=== PATIENT | female | born 1965 | race Two or more races ===

== ENCOUNTER 2023-09-06 11:59 | Outpatient (CLI) | payer OTHER | END 2023-09-06 12:15 | disposition home or self-care (01) | LOC: NUCLEAR 11:59 | PROVIDERS: ATTEND General Practice | DX: M81.0 Age-related osteoporosis without current pathological fracture (principal) ==

== ENCOUNTER 2023-09-11 09:46 | Outpatient (CLI) | payer OTHER | END 2023-09-11 10:06 | disposition home or self-care (01) | LOC: MAMO-SONO 09:46 | PROVIDERS: ATTEND General Practice | DX: N64.4 Mastodynia (principal); Z12.31 Encounter for screening mammogram for malignant neoplasm of breast ==

== ENCOUNTER 2023-10-10 15:38 | Outpatient (CLI) | payer OTHER | END 2023-10-10 15:42 | disposition home or self-care (01) | LOC: RAD 15:38 | DX: I10 Essential (primary) hypertension (principal) ==

== ENCOUNTER → 2023-10-11 09:23 | Outpatient (CLI) | payer OTHER | END | disposition home or self-care (01) | LOC: EKG 09:23 | DX: I10 Essential (primary) hypertension (principal) ==